=== PATIENT | male | born 1960 | race Caucasian/White ===

== ENCOUNTER → 2021-04-30 00:39 | Outpatient (CLI) | payer BC, SELFPAY ==
[2021-04-30 16:45] LABS: SARS-CoV-2 RNA PCR Negative
== END ==
PROVIDERS: PCP Internal Medicine; Visit Provider Internal Medicine Gastroenterology
DX: Z01.812 Encounter for preprocedural laboratory examination (principal); Z20.822 Contact with and (suspected) exposure to COVID-19
CPT/HCPCS: C9803; U0003; U0005

== ENCOUNTER 2021-05-04 02:28 | Day surgery (SDC) | payer BC, SELFPAY ==
[2021-04-25 13:14] VITALS: BMI 25.9
--- NOTE | 2021-05-03 10:00 | WPDANESEPPF ---
Anes - Initial Pre Proc Eval Procedure: Operation Date: 05/04/21 07:30 Proposed Procedures p Screening Colonoscopy - Ariel Edward MD Date/Time: 05/03/21 10:00 Surgeon: Ariel Edward MD Pre Op Diagnosis: neoplasm screening Patient Data Age: 60 Gender: M Height: 1.7 m Weight: 75 kg Allergies Allergy/AdvReac Type Severity Reaction Status Date / Time No Known Allergies Allergy Verified 05/04/21 06:22 Home Medications Medication Instructions Recorded Confirmed Type atorvastatin 20 mg tablet 20 mg PO DAILY 03/04/21 05/04/21 History Patient hx anesthesia problems: none Family hx anesthesia problems: none PMFSH Past Medical History Medical History (Updated 05/03/21 @ 10:00 by Sagar Javed DO) Dyslipidemia Surgical History Surgical History (Updated 04/05/21 @ 15:42 by Victoria Mills CMA) History of spinal surgery Family History Family History Mother Acute myocardial infarction Social History Social History Smoking packs per day: 0.5 Smoking cigarettes per day: 10.0 Years smoked: 42 Smoking pack-years: 21.00 Smoking status: Current every day smoker Tobacco type: cigarettes Alcohol intake: current Drinks per week: 8 Living arrangements: with family Spiritual care concerns: No Anes - Eval Final PreProcedure Day of Procedure 05/03/21 10:00 Patient weight: overweight Heart: regular rate and rhythm Lungs: clear to auscultation and normal air movement Airway: Mallampati scale class II Neurological: alert and oriented Last oral intake: >/= 8 hours ASA classification: III Emergent: no Anesthetic plan: proceed Anesthesia type and monitoring: general GIVS and standard monitoring Informed Consent: The patient's anesthetic plan and its attendant risks and benefits were discussed with the patient/family/POA. Questions were solicited and answers provided to the satisfaction of the patient/family/POA.
[2021-05-04 06:23] VITALS: BP 127/92; PULSE 68; RESP 20; TEMP 36.5; O2SAT 99
[2021-05-04] MEDS: LACTATED RINGERS 1,000 ML 150 ML IV CONT (06:31)
--- NOTE | 2021-05-04 07:33 | PM.HPGS ---
History of Present Illness History of Present Illness Consent: Risks, benefits, and alternatives have been discussed and questions answered. Patient agrees to proceed with procedure. Chief complaint: neoplasm screening Narrative: Kelvin Sy is a 60 year old male here for first screening colonoscopy Review of Systems Constitutional: Constitutional: Denies headache(s) and Denies weakness Eyes: Eyes: Denies blurry vision ENT: Reports Normal hearing present, Denies headache(s) and Denies neck pain Cardiovascular: Cardiovascular: Denies chest pain and Denies dyspnea Respiratory: Respiratory: Denies dyspnea Gastrointestinal: Gastrointestinal: Reports no additional gastrointestinal complaints Genitourinary: Genitourinary: Denies dysuria Musculoskeletal: Musculoskeletal: Denies neck pain Integumentary/Breasts: Skin/Breast: Denies dry skin Neurologic: Reports Normal hearing present, Denies headache(s) and Denies weakness Psychiatric: Psychiatric: Denies anxiety Endocrine: Endocrine: Denies change in body appearance Hematologic/Lymphatic: Hematologic/Lymphatic: Denies easy bleeding Allergic/Immunologic: Allergic/Immunologic: Denies urticaria PMF Past Medical History Medical History (Updated 05/04/21 @ 07:33 by Ariel Edward MD) Colon cancer screening Dyslipidemia Surgical History Surgical History (Updated 04/05/21 @ 15:42 by Victoria Mills CMA) History of spinal surgery Family History Family History Mother Acute myocardial infarction Social History Social History Smoking packs per day: 0.5 Smoking cigarettes per day: 10.0 Years smoked: 42 Smoking pack-years: 21.00 Smoking status: Current every day smoker Tobacco type: cigarettes Alcohol intake: current Drinks per week: 8 Living arrangements: with family Spiritual care concerns: No Meds Home Medications and Allergies Home Medications Medication Instructions Recorded Confirmed Type atorvastatin 20 mg tablet 20 mg PO DAILY 03/04/21 05/04/21 History Allergies Allergy/AdvReac Type Severity Reaction Status Date / Time No Known Allergies Allergy Verified 05/04/21 06:22 Vital Signs Vital Signs - 24 hr 05/04/21 06:23 Temperature 97.7 F Pulse Rate 68 Respiratory Rate 20 Blood Pressure 127/92 H Pulse Oximetry 99 Exam Const: General: comfortable and no acute distress HENMT: General nose exam: Normal nares present Eyes: General: appearance normal, both eyes and all related structures Neck: Neck: no JVD Resp: Auscultation: clear to auscultation bilaterally Cardio: Rate: regular rate Rhythm: regular rhythm GI: Inspection: non-distended GI Palp: Yes Soft to palpation Skin: General skin exam: normal color Neuro: General: gait normal Speech: normal speech Extrem: General: normal to inspection Psych: Mental Status: mental status grossly normal Assessment and Plan Assessment and plan (1) Colon cancer screening: Code(s): Z12.11 - Encounter for screening for malignant neoplasm of colon Status: Acute Assessment and Plan: colonoscopy
[2021-05-04 07:51] VITALS: BP 106/66; PULSE 55; RESP 25; O2SAT 95
[2021-05-04 08:01] VITALS: BP 103/72; PULSE 52; RESP 20; O2SAT 97
[2021-05-04 08:11] VITALS: BP 126/88; PULSE 54; RESP 18; O2SAT 98
== END 2021-05-04 08:15 | disposition home or self-care (01) ==
PROVIDERS: PCP Internal Medicine; Visit Provider Internal Medicine Gastroenterology
PROC: 0DJD8ZZ Inspection of Lower Intestinal Tract, Via Natural or Artificial Opening Endoscopic (ICD-10-PCS; CPT 45378; principal; 2021-05-04 07:30)
DX: Z12.11 Encounter for screening for malignant neoplasm of colon (principal); D12.0 Benign neoplasm of cecum; K64.8 Other hemorrhoids; E78.5 Hyperlipidemia, unspecified; F17.210 Nicotine dependence, cigarettes, uncomplicated
CPT/HCPCS: 45385; 88305; J2704; J7120

== ENCOUNTER 2021-07-20 08:13 | Outpatient (CLI) | payer BC, SELFPAY ==
--- NOTE | ~2021-07-20 | NM_ITS ---
EXAMINATION: NM stress w perf spect multi DATE: 07/20/2021 11:40 INDICATION: Chest pain TECHNIQUE: Rest images were obtained following intravenous administration of 9.6 mCi Tc99m tetrofosmi n ([employer]). The patient performed an exercise activity. At peak exercise, 30.8 mCi Tc99m tetrofosmin ([employer]) was administered intravenously, and stress images were obtained. Data was reconstructed in to short axis and horizontal and vertical long axis SPECT images. Gated SPECT images were also obtain ed. COMPARISON: None. FINDINGS: There is normal left ventricular perfusion without definite evidence of reversible or fixed perfusion abnormality to suggest ischemia or infarction. There is normal left ventricular chamber size, wall motion and ejection fraction. Left ventricular ejection fraction measures 60%. IMPRESSION: 1. Normal myocardial perfusion at rest and during stress. 2. Left ventricular ejection fraction measuring 60%. Reviewed, dictated and finalized at location B.
--- NOTE | 2021-07-20 09:03 | EST_ITS ---
Patient Info Name: Kelvin Sy Age: 60 years : 1960 Gender: Male Ht: 67 in Wt: 165 lbs BSA: 1.89 m2 Exam Date: 07/20/2021 9:24 AM Exam Location: [facility] Stress Patient Status: Outpatient Admit Date: 07/20/2021 Staff Ordering Physician: Gopal March DO Attending Provider: Gopal March DO Exercise Technologist: Leonardo Robertson RDCS, RT Exercise Physician: Gopal March DO Exam Type: CA stress test treadmill w NM Study Info A nuclear stress test was performed. Summary 1. 1. Negative Ronnie exercise stress test for ischemic ST changes by ECG criteria. 2. 2. Good functional capacity, achieving 12 METs of workload. 3. 3. Appropriate HR response to exercise. 4. 4. Appropriate HR recovery at 1 minute post exercise. 5. 5. Nuclear scan to follow and will be reported separately. Please correlate with it. 6. 6. Patient informed of the above results. Protocol: Ronnie Stress ECG Details Stage: REST Duration (min): 1 min : 8 sec Speed (mph): 0.0 Grade (%): 0 HR (bpm): 66 SBP (mmHg): 134 DBP (mmHg): 84 METS: --- Stage: REST Duration (min): 2 min : 9 sec Speed (mph): 0.0 Grade (%): 0 HR (bpm): 68 SBP (mmHg): 134 DBP (mmHg): 84 METS: --- Stage: STAGE 1 Duration (min): 1 min : 0 sec Speed (mph): 1.7 Grade (%): 10 HR (bpm): 96 SBP (mmHg): 134 DBP (mmHg): 84 METS: --- Stage: STAGE 1 Duration (min): 2 min : 0 sec Speed (mph): 1.7 Grade (%): 10 HR (bpm): 93 SBP (mmHg): 134 DBP (mmHg): 84 METS: --- Stage: STAGE 1 Duration (min): 3 min : 0 sec Speed (mph): 1.7 Grade (%): 10 HR (bpm): 90 SBP (mmHg): 121 DBP (mmHg): 77 METS: --- Stage: STAGE 2 Duration (min): 1 min : 0 sec Speed (mph): 2.5 Grade (%): 12 HR (bpm): 104 SBP (mmHg): 121 DBP (mmHg): 77 METS: --- Stage: STAGE 2 Duration (min): 2 min : 0 sec Speed (mph): 2.5 Grade (%): 12 HR (bpm): 108 SBP (mmHg): 135 DBP (mmHg): 76 METS: --- Stage: STAGE 2 Duration (min): 3 min : 0 sec Speed (mph): 2.5 Grade (%): 12 HR (bpm): 114 SBP (mmHg): 135 DBP (mmHg): 76 METS: --- Stage: STAGE 3 Duration (min): 1 min : 0 sec Speed (mph): 3.4 Grade (%): 14 HR (bpm): 121 SBP (mmHg): 143 DBP (mmHg): 77 METS: --- Stage: STAGE 3 Duration (min): 2 min : 0 sec Speed (mph): 3.4 Grade (%): 14 HR (bpm): 128 SBP (mmHg): 143 DBP (mmHg): 77 METS: --- Stage: STAGE 3 Duration (min): 3 min : 0 sec Speed (mph): 3.4 Grade (%): 14 HR (bpm): 128 SBP (mmHg): 153 DBP (mmHg): 76 METS: --- Stage: STAGE 4 Duration (min): 1 min : 0 sec Speed (mph): 4.2 Grade (%): 16 HR (bpm): 148 SBP (mmHg): 153 DBP (mmHg): 76 METS: --- Stage: STAGE 4 Duration (min): 1 min : 20 sec Speed (mph): 4.2 Gr
== END 2021-07-20 08:14 | disposition home or self-care (01) ==
PROVIDERS: PCP Internal Medicine; Visit Provider Internal Medicine Cardiovascular Disease
DX: R07.89 Other chest pain (principal)
CPT/HCPCS: 78452; 93017; A9502